=== PATIENT | female | born 1975 | race Caucasian/White ===

== ENCOUNTER 2017-10-05 07:09 | Emergency (ER) | payer BC ==
[2017-10-05 07:24] VITALS: BP 124/84
--- NOTE | 2017-10-05 07:37 | ED ---
Influenza-Like Illness - HPI Summary HPI Summary: Chills, achiness, sore throat for two days. It hurts more to swallow. - History of Current Complaint Chief Complaint: UCRespiratory Time Seen by Provider: 10/05/17 07:29 Hx Obtained From: Patient Onset/Duration: Gradual Onset, Lasting Days, Still Present Severity: Moderate Associated Signs & Symptoms: F/C, Myalgia, Sore Throat - Allergy/Home Medications Allergies/Adverse Reactions: Allergies Allergy/AdvReac Type Severity Reaction Status Date / Time No Known Allergies Allergy Verified 10/05/17 07:15 Home Medications: Home Medications Medroxyprogesterone Acetate [Medroxyprogesterone Aceta] 10 mg PO SEE INSTRUCTIONS 10/05/17 [History Confirmed 10/05/17] Multivitamin [Multivitamins] 1 each PO DAILY 10/05/17 [History Confirmed ] PMH/Surg Hx/FS Hx/Imm Hx Previously Healthy: Yes - Surgical History Surgery Procedure, Year, and Place: x 2, ganglian cyst removed left hand 2009 Infectious Disease History: No Infectious Disease History: Reports: Traveled Outside the [place] in Last 30 Days - [facility] - Family History Known Family History: Positive: None, Other - Both children recently had strep throat. - Social History Occupation: Employed Full-time Lives: With Family Alcohol Use: Weekly Substance Use Type: Reports: None Smoking Status (MU): Never Smoked Tobacco Review of Systems Positive: Fever, Chills Positive: Sore Throat All Other Systems Reviewed And Are Negative: Yes Physical Exam Triage Information Reviewed: Yes Vital Signs On Initial Exam: Initial Vitals Temp Pulse Resp BP Pulse Ox 98.7 F 102 20 124/84 100 10/05/17 07:18 10/05/17 07:18 10/05/17 07:18 10/05/17 07:18 10/05/17 07:18 Vital Signs Reviewed: Yes Appearance: Positive: Well-Appearing, No Pain Distress, Well-Nourished. Negative: Ill-Appearing, Pain Distress, Obese Skin: Positive: Warm Head/Face: Positive: Normal Head/Face Inspection Eyes: Positive: Normal, EOMI, DRE, Conjunctiva Clear. Negative: Conjunctiva Inflammed ENT: Positive: Pharyngeal erythema, TMs normal, Uvula midline. Negative: Nasal congestion, Nasal drainage, TM bulging, TM dull, TM red, Tonsillar swelling, Tonsillar exudate, Trismus, Muffled voice, Sinus tenderness Neck: Positive: Supple, Nontender, No Lymphadenopathy. Negative: Nuchal Rigidity Respiratory/Lung Sounds: Positive: Clear to Auscultation, Breath Sounds Present , Decreased Breath Sounds. Negative: Rales, Rhonchi, Subcutaneous Emphysema, Stridor, Tracheal Deviation, Wheezes, Unable to speak in full sentences Cardiovascular: Positive: RRR - Traige HR elevted. It was normal during my exam.. Negative: Murmur, Leg Edema Left, Leg Edema Right Abdomen Description: Positive: No Organomegaly, Soft. Negative: Distended, Guarding Musculoskeletal: Positive: Strength/ROM Intact Neurological: Positive: Sensory/Motor Intact, Alert, Oriented to Person Place, Time, CN Intact II-III. Negative: Cerebellar Dysfunction, Disoriented Psychiatric: Positive: Normal, Affect/Mood Appropriate. Negative: Anxious Diagnostics - Vital Signs Vital Signs Temp Pulse Resp BP Pulse Ox 10/05/17 07:18 98.7 F 102 20 124/84 100 - Laboratory Lab Statement: Any lab studies that have been ordered have been reviewed, and results considered in the medical decision making process. Flu Symptom Course/Dx - Diagnoses Provider Diagnoses: URI (upper respiratory infection), Strep throat Discharge - Discharge Plan Condition: Good Disposition: HOME Prescriptions: Amoxicillin PO (*) [Amoxicillin 500 MG CAP*] 500 mg PO TID #30 cap Patient Education Materials: Strep Throat (ED) Referrals: Gracie Vital MD [Primary Care Provider] -
== END 2017-10-05 08:07 | disposition home or self-care (01) ==
LOC: UCCORT 07:09
DX: J02.0 Streptococcal pharyngitis (principal); J06.9 Acute upper respiratory infection, unspecified
CPT/HCPCS: 87502; 87651; 99212; G0463

== ENCOUNTER 2018-02-28 12:51 | Emergency (ER) | payer BC ==
--- NOTE | 2018-02-28 13:39 | UC ---
Complaint Female HPI - HPI Summary HPI Summary: 42 y/o female presents to the urgent care c/o frequency and a mild burning sensation since Tuesday02/27/2018. Pt has been drinking water, but has not taking anything to alleviate symptoms. Pt denies vaginal discharge, lower back pain, pelvic pain, fever, abdominal pain, N/V/D. LMP 02/02/2018. Denies Hx of STD 's - History Of Current Complaint Stated Complaint: URINARY Time Seen by Provider: 02/28/18 13:38 Hx Obtained From: Patient Hx Last Menstrual Period: 02/02/2018 ?: No Onset/Duration: Gradual Onset, Lasting Days - 2 days, Still Present Timing: Intermittent, Lasting Seconds Severity Initially: Mild Severity Currently: Mild Pain Intensity: 2 Pain Scale Used: 0-10 Numeric Character: Burning Aggravating Factor(s): Urination Associated Signs And Symptoms: Positive: Negative. Negative: Fever, Back Pain, Vaginal Bleeding/Discharge, Vaginal Discharge, Genital Blisters - Risk Factors Ectopic Risk Factor: Negative Ovarian Torsion Risk Factor: Negative - Allergies/Home Medications Allergies/Adverse Reactions: Allergies Allergy/AdvReac Type Severity Reaction Status Date / Time No Known Allergies Allergy Verified 02/28/18 13:41 PMH/Surg Hx/FS Hx/Imm Hx Previously Healthy: Yes - Pt deneis PMHX - Surgical History Surgical History: Yes Surgery Procedure, Year, and Place: x 2, ganglian cyst removed left hand 2009 - Family History Known Family History: Positive: Cardiac Disease, Diabetes - Social History Occupation: Employed Full-time Lives: With Family Alcohol Use: Weekly Substance Use Type: None Smoking Status (MU): Never Smoked Tobacco - Immunization History Most Recent Influenza Vaccination: FALL 2014 Review of Systems Constitutional: Negative Skin: Negative Eyes: Negative ENT: Negative Respiratory: Negative Cardiovascular: Negative Gastrointestinal: Negative Genitourinary: Dysuria, Frequency Motor: Negative Neurovascular: Negative Musculoskeletal: Negative Neurological: Negative Psychological: Negative Is Patient Immunocompromised?: No All Other Systems Reviewed And Are Negative: Yes Physical Exam - Summary Physical Exam Summary: VITAL SIGNS: Reviewed. GENERAL: Patient is a well developed and nourished female who is sitting comfortable in the examining table. Patient is not in any acute respiratory distress. HEAD AND FACE: No signs of trauma. No ecchymosis, hematomas or skull depressions. No sinus tenderness. EYES: PERRLA, EOMI x 2, No injected conjunctiva, clear watery eyes, no nystagmus. No photophobia. EARS: Hearing grossly intact. Ear canals and tympanic membranes are within normal limits. MOUTH: pharynx with no erythema, no exudates,no palatal petechiae. no B/L tonsillar enlargement Uvula in midline. NECK: Supple, trachea is midline, no lymphadenopathy, no JVD, no carotid bruit, no c-spine tenderness, neck with full ROM. CHEST: Symmetric, no tenderness at palpation LUNGS: Clear to auscultation bilaterally. No wheezing or crackles. CVS: Regular rate and rhythm, S1 and S2 present, no murmurs or gallops appreciated. ABDOMEN: Soft, non-tender. No signs of distention. No rebound no guarding, and no masses palpated. Bowel sounds are normal. BACK:no scoliosis or lesions, non tender to palpation, No B/L CVA tenderness EXTREMITIES: FROM in all major joints, no edema, no cyanosis or clubbing. NEURO: Alert and oriented x 3. No acute neurological deficits. Speech is normal and follows commands. SKIN: Dry and warm Triage Information Reviewed: Yes Complaint Female Dx - Course Course Of Treatment: 42 y/o female presents to the urgent care c/o frequency and a mild burning sensation since Tuesday02/27/2018. Pt has been drinking water , but has not taking anything to alleviate symptoms. Pt denies vaginal discharge , lower back pain, pelvic pain, fever, abdominal pain, N/V/D. LMP 02/02/2018. Denies Hx of STD's. Hx obtained. PE: WNL. UA and test ordered. UA results:negative. test: negative. Pt request urine to be sent to lab for culture. Pt Rx Pyridium 100mg PO TID x 2 days to alleviate dysuria. Advised to increase fluid intake. Urine sent for culture if any abnormality Pt will be notified for further treatment. Pt advised If symptoms do not improve to return to the urgent care or f/u with PCP. Pt understood and agreed. Left the clinic ambulating. - Differential Dx/Diagnosis Differential Diagnosis/HQI/PQRI: Cervicitis, Pelvic Inflammatory Disease, Renal Colic, Ureteral Stone, Urinary Tract Infection Provider Diagnoses: 1- Dysuria Discharge - Sign-Out/Discharge Documenting (check all that apply): Patient Departure - D/c home - Discharge Plan Condition: Stable Disposition: HOME Prescriptions: Phenazopyridine TAB* [Pyridium 100 mg TAB*] 100 mg PO TID #6 tab Patient Education Materials: Dysuria (ED) Referrals: Gracie Vital MD [Primary Care Provider] - 3 Days Additional Instructions: 1- Please take Pyridium 100 mg PO TID x 2 days to alleviate urinary symptoms. Increase increase fluid intake. drink cranberry juice. 2-Urine sent for culture if any abnormality, you will be notified for further treatment. 3-If symptoms do not improve please return to the urgent care or f/u with her PCP in 3 days for further management. . - Billing Disposition and Condition Condition: STABLE Disposition: Home
[2018-02-28 13:42] VITALS: BP 132/75
== END 2018-02-28 14:05 | disposition home or self-care (01) ==
LOC: UCCORT 12:51
DX: R30.0 Dysuria (principal)
CPT/HCPCS: 81003; 84702; 87086; 99212; G0463